=== PATIENT | female | born 1950 | race Caucasian/White ===

== ENCOUNTER 2022-01-02 06:31 | Observation (INO) ==
--- NOTE | 2021-12-13 09:26 | PAT Medication Instructions ---
Medication Instructions Date of Service December 13, 2021 Home Medications ascorbic acid (vitamin C) 500 mg tablet (Vitamin C) 500 mg PO BID biotin 10,000 mcg capsule 10,000 mcg PO QAM calcium carbonate 600 mg-vitamin D3 5 mcg (200 unit) tablet 2 tab PO HS cholecalciferol (vitamin D3) 125 mcg (5,000 unit) tablet (Vitamin D3) 125 mcg PO QAM duloxetine 30 mg capsule,delayed release (Cymbalta) 30 mg PO HS famotidine 20 mg tablet (Pepcid) 20 mg PO HS loratadine 10 mg tablet (Claritin) 10 mg PO QAM melatonin 10 mg capsule 10 mg PO HS omega-3 fatty acids 1,000 mg PO BID trazodone 50 mg tablet 25 mg PO HS vitamins A,C,J-wcvl-dbfhrk 14,320 unit-226 mg-200 unit capsule (PreserVision AREDS) 1 cap PO QAM STOP taking 2 weeks before surgery biotin 10,000 mcg capsule 10,000 mcg PO QAM omega-3 fatty acids 1,000 mg PO BID vitamins A,C,U-jiwp-rjolrn 14,320 unit-226 mg-200 unit capsule (PreserVision AREDS) 1 cap PO QAM DO NOT take the morning of surgery ascorbic acid (vitamin C) 500 mg tablet (Vitamin C) 500 mg PO BID cholecalciferol (vitamin D3) 125 mcg (5,000 unit) tablet (Vitamin D3) 125 mcg PO QAM loratadine 10 mg tablet (Claritin) 10 mg PO QAM Take evening before surgery ascorbic acid (vitamin C) 500 mg tablet (Vitamin C) 500 mg PO BID calcium carbonate 600 mg-vitamin D3 5 mcg (200 unit) tablet 2 tab PO HS duloxetine 30 mg capsule,delayed release (Cymbalta) 30 mg PO HS famotidine 20 mg tablet (Pepcid) 20 mg PO HS melatonin 10 mg capsule 10 mg PO HS trazodone 50 mg tablet 25 mg PO HS Other Notes NOTHING TO EAT OR DRINK AFTER MIDNIGHT. If you have any questions please call us at [phone] or [phone] or [phone] or [phone]
--- NOTE | 2021-12-14 10:33 | Anesthesiology Consultation ---
Date of Service December 14, 2021 Assessment & Plan (1) Encounter for pre-operative examination: - COVID screening: Per assessment on 12/14/2021: Travel screen-flew from [place] and traveled home from 12/10, no known COVID-19 positive contacts or current COVID-19 related symptoms in past 2 weeks. Patient vaccinated. Surgeon arranging preop COVID testing, scheduled 12/28/2021. Awaiting results. Chart Review Chart Review: Acceptable Risk for Surgery and Patient seen in Pre Admission Testing Teaching & Discussion Pre-Anesthesia Teaching/Discussion Notes: Instructed NPO after midnight before surgery, except medications with 15 cc of water. Medication instructions provided according to the PAT guidelines. History Surgery Operation Date: 01/02/22 07:00 Proposed Procedures p Left Total Knee Arthroplasty - Bradley Browning MD Height/Weight Height: 5 ft 4 in Weight: 71.5 kg Allergies Allergy/AdvReac Type Severity Reaction Status Date / Time No Known Allergies Allergy Verified 12/13/21 07:35 Medications Home Medications Medication Instructions Recorded Confirmed Last Taken ascorbic acid (vitamin C) 500 mg 500 mg PO BID 12/13/21 12/13/21 Unknown tablet (Vitamin C) biotin 10,000 mcg capsule 10,000 mcg PO QAM 12/13/21 12/13/21 Unknown calcium carbonate 600 mg-vitamin 2 tab PO HS 12/13/21 12/13/21 Unknown D3 5 mcg (200 unit) tablet cholecalciferol (vitamin D3) 125 125 mcg PO QAM 12/13/21 12/13/21 Unknown mcg (5,000 unit) tablet (Vitamin D3) duloxetine 30 mg capsule,delayed 30 mg PO HS 12/13/21 12/13/21 Unknown release (Cymbalta) famotidine 20 mg tablet (Pepcid) 20 mg PO HS 12/13/21 12/13/21 Unknown loratadine 10 mg tablet (Claritin) 10 mg PO QAM 12/13/21 12/13/21 Unknown melatonin 10 mg capsule 10 mg PO HS 12/13/21 12/13/21 Unknown omega-3 fatty acids 1,000 mg PO BID 12/13/21 12/13/21 Unknown trazodone 50 mg tablet 25 mg PO HS 12/13/21 12/13/21 Unknown vitamins A,C,R-oyya-pgxiow 14,320 1 cap PO QAM 12/13/21 12/13/21 Unknown unit-226 mg-200 unit capsule (PreserVision AREDS) Daily Probiotic PO DAILY 12/14/21 Unknown cyanocobalamin (vitamin B-12) PO DAILY 12/14/21 Unknown Additional Notes: Daily probiotic and Vitamin B12 supplement reported by pt added to medication list in 5 examples and written on printed medication instruction list, patient aware to NOT take these DOS. Past Medical History Medical History Depression GERD (gastroesophageal reflux disease) controlled, stable per pt History of anemia Hx of migraines Macular degeneration Normal pressure glaucoma Restless leg syndrome Sensorineural hearing loss (SNHL) of left ear with restricted hearing of right ear Sleep apnea CPAP-compliant Patient denies h/o stroke, seizures, heart attack, heart failure, DM, HTN, blood clots or blood transfusions. Exercise / Class Metabolic Activity II 4-5 Yardwork/Stairs/Walk up hill (denies CP or SOB with 1 FOS) Past Family History Family History Mother Family hx of colon cancer Brother Family hx of colon cancer Other No family history of adverse response to anesthesia Past Surgical History Surgical History H/O breast biopsy BENIGN H/O vaginal hysterectomy History of carpal tunnel release of both wrists History of cataract surgery RT/LEFT History of cholecystectomy History of colonoscopy History of esophagogastroduodenoscopy (EGD) History of hammertoe correction RT/LEFT History of tonsillectomy and adenoidectomy History of tooth extraction Nausea and vomiting after administration of anesthetic agent Past Anesthesia History No Hx of Anesthesia Complications and No Family Hx of Anesthesia Complications History of PONV No Hx of Motion Sickness and History of PONV (denies needing scop patch) Social History Smoking Status: Former smoker tobacco type: cigarettes Do You Dip or Chew Tobacco: No Smoking End Date: ONLY SMOKED WHILE IN COLLEGE Hx Alcohol Use: Yes Alcohol type: wine and hard liquor alcohol intake frequency: a few times a week substance use type: does not use Review of Systems Patient denies chest pain, shortness of breath, dyspnea on exertion, fever, chills, cough, wheezing, or palpitations. Physical Exam Vital Signs Vitals BP 111/68 P 77 TEMP 98.3 SP02 98% on RA RESP 17 Physical Full cervical extension range of motion without pain TMD 3.5 finger breaths Mallampati Score 2 Dentition: intact, multiple crowns throughout, one implant-front right upper; denies chipped or loose teeth or bridges Lungs: normal respiratory effort. Clear throughout to auscultation, no adventitious breath sounds Cardiac: regular rate and rhythm, no murmurs noted Carotid arteries: negative bruit bilat Lab Results Anesthesia Preop Results Results Anesthesia Widget: WBC 4.90 K/uL (4.8-10.8) 12/14/21 Hgb 13.5 g/dL (12.0-16.0) 12/14/21 Hct 40.4 % (37-47) 12/14/21 Plt 340 K/uL (130-400) 12/14/21 Na 140 mmol/L (136-145) 12/14/21 K 4.3 mmol/L (3.5-5.1) 12/14/21 Cl 102 mmol/L (98-107) 12/14/21 CO2 30 mmol/L (21-32) 12/14/21 BUN 14 mg/dl (6-23) 12/14/21 Creat 0.74 mg/dl (0.6-1.2) 12/14/21 Glucose Level 88 mg/dl (70-99(Fasting)) 12/14/21 PT 10.3 Seconds (9.0-12.0) 12/14/21 PTT 24.1 Seconds (21.0-31.0) 12/14/21 INR 1.0 (0.9-1.1) 12/14/21 Urine Color Yellow 12/14/21 Urine Appearance Clear (Clear) 12/14/21 Urine pH 6.5 (4.5-7.5) 12/14/21 Urine Specific Jelm 1.013 (1.000-1.030) 12/14/21 Urine Protein Negative (Negative) 12/14/21 Urine Glucose (UA) Negative (Negative) 12/14/21 Urine Ketones Negative (Negative) 12/14/21 Urine Blood Negative (Negative) 12/14/21 Urine Nitrite Negative (Negative) 12/14/21 Urine Bilirubin Negative (Negative) 12/14/21 Urine Urobilinogen Negative (Negative) 12/14/21 Urine Leukocyte Esterase Negative (Negative) 12/14/21 Blood Type AB Positive 12/14/21 Antibody Screen NEGATIVE 12/14/21 Testing Electrocardiogram Date: 12/14/21 NSR, rate 73 bpm Chest X-Ray Date: 12/14/21 The cardiomediastinal and hilar silhouettes are within normal limits. There is no pneumothorax, pleural effusion, airspace consolidation or overt pulmonary edema. Spondylitic spurring of the spine. Cholecystectomy. IMPRESSION: No acute process.
--- NOTE | 2021-12-16 21:54 | History & Physical Report ---
Date of Service December 16, 2021 Assessment & Plan (1) Left knee DJD: Plan: Postoperative prescriptions for Percocet and Coumadin will be provided at discharge from the hospital. Anticipate discharge to home with home health services. She has already been set up with [facility]. The patient does have a history of constipation associated with narcotic use. She was encouraged to use Colace and motility agents such as MiraLax to limit her risk for constipation. She is aware that she can also decrease her opioid use. PDMP was checked and there are no concerning findings. The patient has a script provided for her COVID-19 nasal swab to be done next Friday. She is aware of the COVID-19 risks associated with surgery. She is currently asymptomatic of any COVID-19 symptoms. She already has access to a walker and cane. She will bring these along the day of surgery. The patient will also bring her CPAP. Call with any other concerns. She will see PAT today for her preoperative lab work, EKG, and chest x-ray. She has an appointment to see her PCP, Dr. Ireland, next week. History of Present Illness Chief Complaint: Left knee DJD Primary Care Provider: Sapphire Ireland MD This is a 71-year-old female who presents for her preoperative history and physical. She is scheduled to undergo a left knee total knee arthroplasty on 01/02/22. She has had a longstanding history of bilateral knee pain, left greater than right. Symptoms have been ongoing for years. She is managed them with activity modification as well as injection therapy with reasonable results until lately. Over the last 6-12 months, she has had no relief. She has known DJD. At this point, she elects to proceed with surgical intervention in hopes of improving her pain and function. Her discomfort is affecting her ADLs. Worse with weightbearing. She denies any numbness or tingling. Preoperative imaging has been obtained. She notes her original injury was skiing at age 17. Her next significant injury was a few years ago when stepping down in the grass and striking a rock in the yard awkwardly. She tripped but did not fall and had an impact and twist to her knee. Allergies Allergy/AdvReac Type Severity Reaction Status Date / Time No Known Allergies Allergy Verified 12/13/21 07:35 Home Medications Medication Instructions Recorded Confirmed Type ascorbic acid (vitamin C) 500 mg 500 mg PO BID 12/13/21 12/13/21 History tablet (Vitamin C) biotin 10,000 mcg capsule 10,000 mcg PO QAM 12/13/21 12/13/21 History calcium carbonate 600 mg-vitamin 2 tab PO HS 12/13/21 12/13/21 History D3 5 mcg (200 unit) tablet cholecalciferol (vitamin D3) 125 125 mcg PO QAM 12/13/21 12/13/21 History mcg (5,000 unit) tablet (Vitamin D3) duloxetine 30 mg capsule,delayed 30 mg PO HS 12/13/21 12/13/21 History release (Cymbalta) famotidine 20 mg tablet (Pepcid) 20 mg PO HS 12/13/21 12/13/21 History loratadine 10 mg tablet (Claritin) 10 mg PO QAM 12/13/21 12/13/21 History melatonin 10 mg capsule 10 mg PO HS 12/13/21 12/13/21 History omega-3 fatty acids 1,000 mg PO BID 12/13/21 12/13/21 History trazodone 50 mg tablet 25 mg PO HS 12/13/21 12/13/21 History vitamins A,C,I-jkfc-infarj 14,320 1 cap PO QAM 12/13/21 12/13/21 History unit-226 mg-200 unit capsule (PreserVision AREDS) Daily Probiotic PO DAILY 12/14/21 History cyanocobalamin (vitamin B-12) PO DAILY 12/14/21 History Past Med/Surg History Medical History Depression GERD (gastroesophageal reflux disease) controlled, stable per pt History of anemia Hx of migraines Macular degeneration Normal pressure glaucoma Restless leg syndrome Sensorineural hearing loss (SNHL) of left ear with restricted hearing of right ear Sleep apnea CPAP-compliant Surgical History H/O breast biopsy BENIGN H/O vaginal hysterectomy History of carpal tunnel release of both wrists History of cataract surgery RT/LEFT History of cholecystectomy History of colonoscopy History of esophagogastroduodenoscopy (EGD) History of hammertoe correction RT/LEFT History of tonsillectomy and adenoidectomy History of tooth extraction Nausea and vomiting after administration of anesthetic agent Family History Mother Family hx of colon cancer Brother Family hx of colon cancer Other No family history of adverse response to anesthesia Social History (Updated 12/16/21 @ 21:51 by Spencer Tyler PA-C) Smoking Status: Former smoker Second Hand Exposure: No; Hx Alcohol Use: Yes Alcohol type: wine and hard liquor Preferred Language: Hebrew Hearing Ability: Normal Special Education Teaching Assistant Required: No Beliefs That Will Affect Care: None marital status: Current Living Situation: Spouse current occupational status: retired Feels Safe at Home: Yes Assistive Devices: CPAP and Glasses Review of Systems Review of Systems: All systems reviewed & are unremarkable except as noted in HPI & below A total of 10 systems were reviewed. Physical Exam Physical Exam: Vitals: Height 162 cm, weight 71.8 kilograms, BMI 27.4, temperature 36.4, BP 100/58, pulse 89, O2 sat 98% on room air, respirations 18. General: Well-developed, well-nourished, elderly white female in no acute distress. Sitting in a chair. Alert and oriented. Skin: Warm and dry with good turgor. No rashes or lesions. No ecchymosis or erythema. No intraarticular effusion. HEENT: Normocephalic, atraumatic. Eyes: PERRLA, EOMI. Nares patent bilaterally without turbinate enlargement. Oropharynx exam deferred due to COVID precautions. Heart: RRR. No MGR. Lungs: Clear to auscultation bilaterally. No crackles, rhonchi or wheezing. Good air movement. Abdomen: Bowel sounds present x4, soft, nontender. No organomegaly. No masses. Musculoskeletal: Left knee evaluation reveals slight valgus stance. She has almost full terminal extension. Lacks about 5 degrees. Flexion to 110 degrees. Strength is 5/5 with fair quad tone. No defect in the patellar tendon or quadriceps tendon. She does have focal pain with palpation over the medial and lateral joint lines. No defect in the patellar tendon or quadriceps tendon. Stable collateral ligaments. Ambulating today with a slightly antalgic gait. Neurologic: Gross sensation is intact across both lower extremities by soft touch. Peripheral pulses are 2+. Results & Data Results & Data ([facility]) Diagnostic Findings Radiographic imaging previously obtained of the left knee shows end-stage DJD of all 3 compartments. She is worst in the patellofemoral compartment. She is clearly [id number]. She has loss of joint space, periarticular osteophytes, and subchondral sclerosis. Code Status & VTE Plan VTE Prophylaxis Plan VTE Prophylaxis will be ordered: Yes
--- NOTE | 2022-01-02 05:38 | History & Physical Bridge Note ---
Date of Service January 02, 2022 History & Physical Bridge Note I have examined the patient, reviewed the History & Physical and in the interval since the performance of the History & Physical I have noted the following changes of clinical significance: consent obtained/site verified/covid screen negative.no changes noted
[~2022-01-02 06:31] MED LIST: BUPIVACAINE 0.25% 30 ML VIAL ONE; BUPIVACAINE 0.5 % 5 MG/1 ML PF 10ML VIAL ONE; DEXAMETHASONE SOD INJ 4 MG/ML VIAL ONE; EPINEPHrine INJ 1 MG/ML AMP ONE; LR 500ML BOLUS, THEN 15ML/HR IV SCH; ROPIVACAINE 0.5% HCL/PF 150 MG, BUPIVACAINE 0.75% MPF 20 ML, EPINEPHrine 0.15 MG, Ketor... INFIL SCH; TRANEXAMIC ACID 1,000 MG **IV Pre-op IV SCH; ceFAZolin 2000MG 2,000 MG/15 ML SYR IV SCH
[2022-01-02] MEDS: LR 60ML/HR IV SCH ×2 (07:15→07:25)
[2022-01-02] MEDS ORDERED: PROPOFOL IV EMULSION 10 MG/ML 20 ML VIAL IV ONE ×2 (07:37→10:05)
[2022-01-02] MEDS ORDERED: MIDAZOLAM HCL 1 MG/ML 2ML VIAL ONE (07:37)
[2022-01-02] MEDS ORDERED: ORTHO JOINT ANESTHETIC ONE (09:31)
[2022-01-02] MEDS ORDERED: KETAMINE 50 MG/5 ML SYRINGE ONE (09:53)
[2022-01-02] MEDS ORDERED: ATROPINE SULFATE 0.1 MG/ML 10ML SYR IV PRN (10:00)
[2022-01-02] MEDS ORDERED: ePHEDrine sulfate 50 MG/ML AMP IV PRN (10:00)
[2022-01-02] MEDS ORDERED: fentaNYL citrate 100 MCG/2 ML VIAL IV PRN (10:00)
[2022-01-02] MEDS ORDERED: ONDANSETRON INJ 2 MG/ML 2 ML VIAL IV PRN ×2 (10:00→11:53)
[2022-01-02] MEDS ORDERED: ONDANSETRON INJ 2 MG/ML 2 ML VIAL ONE (10:09)
[2022-01-02] MEDS ORDERED: DEXAMETHASONE SOD INJ 4 MG/ML VIAL ONE (10:09)
--- NOTE | 2022-01-02 10:18 | Discharge Summary (DS) ---
DATE OF ADMISSION: 01/02/2022. DATE OF POTENTIAL DISCHARGE: 01/03/2022. CHIEF COMPLAINT: Left knee pain. HISTORY OF PRESENT ILLNESS: The patient underwent elective left total knee replacement. The patient had endstage patellofemoral disease with significant MRI scan documented medial meniscus extrusion a nd medial compartment disease. She also has some lateral compartment disease. She has failed conser vative management and wished to proceed with surgical treatment. HOSPITAL COURSE: The patient underwent left total knee replacement. Cemented. PREADMISSION MEDICATIONS: Include vitamins, Cymbalta, Pepcid, Claritin, melatonin, trazodone, probio tic. PAST MEDICAL HISTORY: Remarkable for depression, GERD, anemia, migraines, macular degeneration, glau coma, restless leg syndrome, hearing loss, sleep apnea, CPAP compliant. PAST SURGICAL HISTORY: Remarkable for breast benign biopsy, vaginal hysterectomy, carpal tunnel rele ase, cataract surgery bilaterally, cholecystectomy, colonoscopy, EGDs, hammertoe correction, tonsille ctomy, adenoidectomy, tooth extractions. She is sensitive to nausea and vomiting with anesthesia. FAMILY HISTORY: Reveals colon cancer. REVIEW OF SYSTEMS: Reveals no chest pain, shortness of breath, fever, chills, nausea, vomiting or he adache. SOCIAL HISTORY: Lives with spouse. Retired. Wears glasses, uses CPAP. Social alcohol and wine dri nker. Review of systems reveal no issues. ASSESSMENT: Status post left total knee replacement. Continue with care pathway. DISPOSITION: Discharge to home with services. Job ID: [id number]
[2022-01-02] MEDS ORDERED: PHENYLEPHRINE HCL 10 MG/ML VIAL ONE (10:46)
--- NOTE | 2022-01-02 11:04 | Post Operative Brief Note ---
Immediate Post Op Note v1 Date of Surgery January 02, 2022 Pre & Post Diagnosis Operation Date: 01/02/22 08:50 Pre-Op Diagnosis: Left Knee Degenerative Joint Disease Post-Op Diagnosis: Left Knee Degenerative Joint Disease I identified the patient and participated in the time-out.: Yes Procedure Operation Date: 01/02/22 08:50 Actual Procedures p Left Total Knee Arthroplasty(Left) - Bradley Browning MD Surgeon Bradley Browning MD Edge Runner Vince/Nayeli/MS Vazquez Estimated Blood Loss 75 Findings Consistent with Post-Op Diagnosis
--- NOTE | 2022-01-02 11:17 | Operative Report ---
Post Operative Report Pre & Post Diagnosis Operation Date: 01/02/22 08:50 Pre-Op Diagnosis: Left Knee Degenerative Joint Disease Post-Op Diagnosis: Left Knee Degenerative Joint Disease I identified the patient and participated in the time-out.: Yes Procedure Operation Date: 01/02/22 08:50 Actual Procedures p Left Total Knee Arthroplasty(Left) - Bradley Browning MD Surgeon RICHIE Browning MD Dairy Laboratory Technician Vince/Nayeli/MS Vazquez Estimated Blood Loss 75 Findings Consistent with Post-Op Diagnosis see operative report Specimens see operative report Drains none Complications none Disposition Accompanied Patient To Recovery: Yes Indications This 71 year old female presented to the office with complaints of persisting left knee pain. She had tried conservative care measures without improvement. She elected to proceed with surgical intervention after being educated about potential risks and outcomes. Preoperative imaging was obtained. Description of Procedure Patient was administered a spinal anesthetic and then taken to the operating room where she was given sedation. She was prepped and draped in the usual sterile fashion. Please see Dr. Browning's operative report for specifics of the procedure. I was present for the entire case from initial patient positioning through final wound closure. Assistance was provided in tissue retraction, hemostasis, trial implant placement, final implant placement, and final wound closure. Patient was taken to the recovery room in satisfactory condition. I attest to the content of the Intraoperative Record and any orders documented therein. Any exceptions are noted below.
--- NOTE | 2022-01-02 11:34 | XRay Report ---
TWO VIEWS LEFT KNEE CLINICAL HISTORY: Postoperative examination. FINDINGS: AP and crosstable lateral portable views of the left knee are obtained. A left knee arthrop lasty is in near anatomic alignment. There has been undersurface remodeling of the patella. No acute fracture is seen. There are expected postoperative changes around the knee including skin clips, soft tissue edema, and subcutaneous gas. IMPRESSION: Expected postoperative changes status post left knee arthroplasty. No acute fracture is s een. ACT 112: Negative or not required by law. Electronically signed by: Clay Soto M.D. 01/02/2022 11:32 AM
--- NOTE | 2022-01-02 11:36 | Progress Notes ---
DATE OF SERVICE: 01/02/2022 SUBJECTIVE: Postop check status post left total knee replacement. The patient is doing well. Denie s chest pain, shortness of breath, fever, chills, nausea, vomiting or headache. OBJECTIVE: VITAL SIGNS: Stable. She is afebrile. Neurovascular check limited by spinal wearing off. Wound dressing clean, dry and intact. Postop x-rays look excellent. ASSESSMENT AND PLAN: Doing well. Continue with care pathway. Discharge home tomorrow with services . Coumadin per nomogram for deep venous thrombosis/pulmonary embolism prophylaxis. Job ID: [id number]
--- NOTE | 2022-01-02 11:41 | Operative Report (OR) ---
DATE OF SURGERY: 01/02/2022. SURGEON: Bradley Browning MD. EMOTIONAL DISABILITIES TEACHER: Nayeli Clarke PA-C. - [place] PREOPERATIVE DIAGNOSES: Osteoarthritis with flexion varus deformity, patellofemoral disease, left knee. POSTOPERATIVE DIAGNOSES: Osteoarthritis with flexion varus deformity, patellofemoral disease, left knee. OPERATION PERFORMED: Cemented left total knee replacement. SUMMARY IMPLANTS: J and J rotating platform 2.5 left, posterior cruciate stabilized 2.5 mobile bearing tray, 35 patella, 2.5 x 10 mm insert posterior cruciate substituting, 2 bags of Palacos G cement. Bone pathology pending. DVT prophylaxis per protocol. PERIOPERATIVE SITUATION: Medically cleared female who has failed conservative management and has continued knee pain. X-rays reveal end-stage patellofemoral disease with advanced changes in the medial compartment. MRI scan reveals end- stage disease of the medial compartment with extrusion of the meniscus and a grade 4 lesions of the tibia and femur bipolar. The patellofemoral joint is completely obliterated. DESCRIPTION OF PROCEDURE: The patient was appropriately identified, site verified, consent verified. Antibiotics were confirmed as being given. The left lower extremity was prepped and draped in usual routine fashion. Tourniquet was inflated to 275 mmHg after exsanguination of limb with a rubber Esmarch bandage for a total of 50 minutes. Midline exposure utilized. Parapatellar arthrotomy performed. Synovectomy completed. Osteophytes resected. There was grade 4 disease of the entire patellofemoral joint. There was grade 4 disease about 1/4 sized area of the medial femoral condyle and medial tibial plateau. Lateral compartment had grade 2-3 changes. Once the osteophytes were resected, distal femur entered, the cruciates resected, subluxation performed and menisci resected. Distal femur then resected 14 mm, proximal tibia 4 mm. Extension gap was excellent. Femur and tibia were sized to 2.5. A 2.5 placed on the femur and the cuts were made. One of the saw blades tines broke. It was identified, found, and a saw blade change with no issues. The flexion gap was excellent. The box cut was then made, a size 2.5 fit well. The tibia was subluxated then broached and reamed to a size 2.5 and a 10 mm spacer and 12.5 mm spacer was tried; the 12.5 was a little tight in extension. The 10 mm was excellent. There was good mid range stability. The patella tracked well. The patella was then resected leaving about 14 mm. The seating holes were then made a size 35 button fit well and tracked well. Orthomix was then injected all about the knee. All trial implants were removed. The knee was then irrigated with Betadine Pulsavac, and then the permanent cemented in position, tibia, femur, and patella in that order. At 12 minutes, the tourniquet deflated. Minor bleeding points controlled with electrocautery. At 14 minutes knee was flexed, trial spacer removed. No cement removal was required, everything looked good. It was then irrigated one final time with Pulsavac, and then Betadine and the permanent spacer seated and the knee reduced and closed at 40 degrees of flexion using #2 Vicryl, 2-0 Vicryl and stainless steel clips. Appropriate dressing applied. The patient was transferred to the recovery room in satisfactory condition, having tolerated the procedure well. ESTIMATED BLOOD LOSS: 75 mL. CRYSTALLOID: Per anesthesia. PATHOLOGY: Pending on bone. DVT prophylaxis per protocol. Job ID: [id number] [id number]
[2022-01-02] MEDS ORDERED: oxyCODONE HCL IR 5 MG TAB (IMMEDIATE RELEASE) PO PRN (11:53)
[2022-01-02] MEDS ORDERED: HYDROmorphone INJ 0.5 MG/0.5 ML SYR IV PRN (11:53)
[2022-01-02] MEDS ORDERED: diphenhydrAMINE 50 MG/ML VIAL IV PRN (11:53)
[2022-01-02] MEDS ORDERED: NALOXONE HCL 0.4 MG/1 ML VIAL/CARP IV PRN (11:53)
[2022-01-02] MEDS ORDERED: SODIUM CHLORIDE 0.9% 1000ML 1,000 ML IV SCH (11:53)
[2022-01-02] MEDS ORDERED: ALUMINUM/MAGNESIUM SUSP 30 ML UDC PO PRN (11:53)
[2022-01-02] MEDS ORDERED: MAGNESIUM HYDROXIDE SUSP 30 ML UDC PO PRN (11:53)
[2022-01-02] MEDS ORDERED: METOCLOPRAMIDE HCL INJ 5 MG/ML 2 ML VIAL IV PRN (11:53)
[2022-01-02] MEDS ORDERED: bisacodyL 10 MG SUPP PR PRN (11:53)
--- NOTE | 2022-01-02 12:57 | Anesthesiology Progress Note ---
Date of Service January 02, 2022 Anesthesia Post Procedure Vital Signs Vital Signs: Temp Pulse Pulse Resp BP Pulse Ox 01/02/22 12:45 36.4 C L 85 25 H 105/59 L 95 01/02/22 12:30 80 19 107/56 L 96 01/02/22 12:15 88 17 105/63 98 01/02/22 12:00 36.4 C L 91 H 13 103/79 94 01/02/22 11:45 36.4 C L 80 18 107/59 L 96 01/02/22 11:35 79 12 111/62 97 01/02/22 11:25 91 H 27 H 105/64 96 01/02/22 11:15 36.4 C L 97 H 16 110/57 L 99 01/02/22 06:53 36.9 C 78 16 112/67 98 Transfer of Care Handoff Completed per policy Notes Mental Status: alert / awake / arousable Patient Amnestic to Procedure: Yes Nausea / Vomiting: adequately controlled Pain: adequately controlled Airway Patency, RR, SpO2: stable & adequate BP & HR: stable & adequate Hydration State: stable & adequate Anesthetic Complications: no major complications apparent
[2022-01-02] MEDS ORDERED: ORTHO WARFARIN NOMOGRAM SCH (14:00)
[2022-01-02] MEDS: ACETAMINOPHEN 500 MG TAB PO SCH ×2 (15:15→22:07)
[2022-01-02] MEDS: KETOROLAC TROMETHAMINE 15 MG/ML VIAL IV SCH ×2 (15:18→22:08)
[2022-01-02] MEDS: ASCORBIC ACID 500 MG TAB PO SCH (15:51)
[2022-01-02] MEDS: FERROUS GLUCONATE 324 MG TAB PO SCH (15:51)
[2022-01-02] MEDS ORDERED: WARFARIN SOD 5 MG TAB PO ONE (16:00)
[2022-01-02] MEDS: ceFAZolin 2000MG 2,000 MG/15 ML SYR IV SCH (16:37)
[2022-01-02] MEDS ORDERED: TRANEXAMIC ACID / 0.7% NACL 1,000 MG/100 ML BAG IV SCH (17:30)
[2022-01-02] MEDS ORDERED: SENNA 8.6 MG TAB PO SCH (21:00)
[2022-01-02] MEDS ORDERED: traZODone HCL 50 MG TAB PO SCH (21:00)
[2022-01-02] MEDS ORDERED: DULoxetine HCL 30 MG CAP PO SCH (21:00)
[2022-01-02] MEDS ORDERED: MELATONIN 3 MG TAB PO SCH (21:00)
[2022-01-02] MEDS ORDERED: FAMOTIDINE 20 MG TAB PO SCH (21:00)
[2022-01-02] MEDS: DOCUSATE SODIUM 100 MG CAP PO SCH (22:06)
[2022-01-03] MEDS: ceFAZolin 2000MG 2,000 MG/15 ML SYR IV SCH (01:34)
[2022-01-03] MEDS: KETOROLAC TROMETHAMINE 15 MG/ML VIAL IV SCH ×2 (03:38→08:32)
[2022-01-03] MEDS: ACETAMINOPHEN 500 MG TAB PO SCH (06:12)
--- NOTE | 2022-01-03 07:28 | Progress Notes ---
SUBJECTIVE: Postop check status post left total knee replacement. The patient is up and awake and d oing well and has no major discomfort. She feels well. She denies chest pain, shortness of breath, fever, chills, nausea, vomiting, or headache. OBJECTIVE: Vital signs are stable. She is afebrile. Neurovascular check femoral sciatic nerve is normal. The wound dressing clean, dry, and intact. Calves are nontender. Can do a straight leg raise, can pump her ankle well. ASSESSMENT AND PLAN: Doing well. Discharge to home after PT/OT today. Coumadin dose per nomogram. Job ID: [id number]
[2022-01-03] MEDS ORDERED: dexAMETHasone 10 MG in SYRINGE 0 ML IV SCH (08:00)
[2022-01-03] MEDS: FERROUS GLUCONATE 324 MG TAB PO SCH (08:32)
[2022-01-03] MEDS: ASCORBIC ACID 500 MG TAB PO SCH (08:32)
[2022-01-03] MEDS: DOCUSATE SODIUM 100 MG CAP PO SCH (08:32)
[2022-01-03] MEDS ORDERED: MULTIVITAMIN TAB PO SCH (09:00)
[2022-01-03] MEDS ORDERED: LORATADINE 10 MG TAB PO SCH (09:00)
[2022-01-03 09:18] LABS: INR 1.1 (0.9-1.1); Prothrombin Time 11.4 Seconds (9.0-12.0)
[2022-01-03 09:29] LABS: BUN Creatinine Ratio 21.6 (10-20); Calcium 9.2 mg/dl (8.5-10.1); Creatinine Clr Calc Pharmacy 66.8 ml/min; Est GFR (African American) 93.8 ml/min; Est GFR (Non-African American) 80.9 ml/min; Potassium 3.8 mmol/L (3.5-5.1)
[2022-01-03 09:33] LABS: Hematocrit (blood only) 32.5 % (37-47); Hemoglobin 11.2 g/dL (12.0-16.0); Mean Corpuscular Hemoglobin 31.5 pg (25-34); Mean Corpuscular Hgb Conc 34.5 g/dL (32-36); Mean Corpuscular Volume 91.5 fL (80-100); Mean Platelet Volume 9.4 fL (7.4-10.4); Platelet Count 266 K/uL (130-400); RDW Coefficient of Variation 12.5 % (11.5-14.5); RDW Standard Deviation 42.4 fL (36.4-46.3); Red Blood Count 3.55 M/uL (4.2-5.4); White Blood Count 13.39 K/uL (4.8-10.8)
[2022-01-03] MEDS ORDERED: WARFARIN SOD 5 MG TAB PO ONE (10:00)
--- NOTE | 2022-01-03 10:22 | Orthopedic Progress Note ---
Date of Service January 03, 2022 Assessment & Plan (1) Status post total left knee replacement using cement: Plan: Patient's surgical dressing was changed today by me. KEN hose stocking was applied. Continue ice and elevation for edema control. Use the knee immobilizer today and tomorrow, and discontinue its use on Friday. Prescriptions for Percocet and Coumadin have been sent to her pharmacy She will be given her Coumadin dose for today prior to discharge. Written discharge instructions have been provided. Follow-up in the office in 2 weeks as scheduled with ESAU Upton for staple removal Admission and Anticipated Discharge Date Admission Date: January 02, 2022 Subjective Patient is seen in her room this morning. She has no complaints. She states she feels well. She is eating her breakfast. She is just waiting for therapy. She feels ready to go home today. She denies any chest pain, shortness of breath, nausea, abdominal pain, vomiting, or severe leg pain. Review of Systems Review of Systems: Unchanged from yesterday. Physical Exam Physical Exam: General: Well-developed, well-nourished, elderly white female, in no acute distress. Sitting in her chair. Alert and oriented. Conversive. Skin: Warm and dry with good turgor. No rashes. Patient has her postsurgical dressing in place on the left knee. Upon removal, there is a moderate amount of bloody drainage on the inner bandages. There is no active bleeding. Expected postoperative ecchymosis and edema. Musculoskeletal: Patient has intact motor function to her ankle and knee. She is able to perform a straight leg raise. She is able to set her quad. Full extension. Flexion to around 50 degrees. Neurologic: Gross sensation is intact across the left leg by soft touch. Results & Data ([facility]) Vital Signs (Past 12 Hours) Vital Signs Temp Pulse Resp BP Pulse Ox 01/03/22 07:57 36.6 C 73 16 105/66 99 01/03/22 02:45 36.7 C 79 16 103/65 95 01/02/22 22:33 36.5 C 76 16 113/73 95 Laboratory Results CBC obtained this morning shows a white count of 13.4, H&H of 11.2 and 32.5. INR of 1.1. Renal panel is unremarkable.
== END 2022-01-03 13:00 | disposition home health service (06) ==
LOC: ASU 06:31 → PACUINP 06:31 → 3E 14:44